=== PATIENT | male | born 1955 | race Caucasian/White ===

== ENCOUNTER 2019-08-16 08:40 | Outpatient (CLI) | payer MEDICARE, OTHER ==
--- NOTE | 2019-08-16 11:05 | CARDIAC PROCEDURE NOTE ---
DATE OF SERVICE: 08/16/2019 Physician: Connie Mcelroy MD, [facility] INDICATION: Dyspnea on exertion. CARDIAC RISK FACTORS: Male gender, diabetes, hypertension, hyperlipidemia, family history of heart disease. DESCRIPTION OF PROCEDURE: After signing informed consent, patient underwent a Gutierrez-protocol treadmill stress test. There was no imaging study ordered with this test. RESTING HEART RATE: 70. PEAK HEART RATE: 152 (98% predicted maximum heart rate for age). RESTING BLOOD PRESSURE: 144/84. PEAK BLOOD PRESSURE: 226/77. Patient exercised for 6 minutes and 40 seconds on a Gutierrez-protocol treadmill stress test. Patient developed moderate shortness of breath at peak. He had no chest pain. He described his perceived level of exertion on the Spencer scale at 15-16/20 at peak. Oxygen saturation remained 96-99% throughout the entire test on room air. RESTING EKG: Normal sinus rhythm, left IVCD, left atrial enlargement, otherwise within normal limits. EKG AT PEAK: [address] segment depressions in leads V3 through V6. SUMMARY 1. Borderline abnormal resting EKG. 2. Nonspecific EKG changes are noted at peak exercise, not specific for ischemia. 3. No imaging was ordered with this test. 4. Fair exercise tolerance. 5. Poor blood pressure control despite taking his morning Lisinopril. 6. This patient's cardiac risk based on all the above: Moderate-High. 7. Recommend recheck using imaging (nuclear or Echo) with stress. cc: Johan Ambriz MD TD: 08/16/2019 10:49 [facility]
== END 2019-08-16 08:41 | disposition home or self-care (01) ==
LOC: DI 08:40
PROVIDERS: ATTEND Family Medicine
DX: R06.09 Other forms of dyspnea (principal); R94.31 Abnormal electrocardiogram [ECG] [EKG]; E11.9 Type 2 diabetes mellitus without complications; I10 Essential (primary) hypertension; E78.5 Hyperlipidemia, unspecified; Z82.49 Family history of ischemic heart disease and other diseases of the circulatory system; F17.200 Nicotine dependence, unspecified, uncomplicated
CPT/HCPCS: 93017

== ENCOUNTER 2019-08-31 14:18 | Outpatient (CLI) | payer MEDICARE, OTHER ==
--- NOTE | 2019-08-31 16:11 | CARDIAC PROCEDURE NOTE ---
DATE OF SERVICE: 08/31/2019 Physician: Connie Mcelroy MD, [facility] INDICATION: Abnormal EKG, dyspnea. CARDIAC RISK FACTORS: Male gender, diabetes, hypertension, hyperlipidemia, family history of heart disease. PROCEDURE: After signing informed consent, the patient underwent a Gutierrez- protocol treadmill stress test with Echo imaging pre- and post-exercise. RESTING HEART RATE: 80. PEAK HEART RATE: 150 (97% predicted maximum heart rate for age). RESTING BLOOD PRESSURE: 134/68. PEAK BLOOD PRESSURE: 227/80. The patient exercised for 6 minutes and 30 seconds on a Gutierrez-protocol treadmill stress test. The patient achieved a peak heart rate of 150 (97% PMHR) and 10.2 METS. The patient developed shortness of breath at the end of stage 2 and described his perceived Spencer scale at 15/20 at peak. He had no chest pain. Oxygen saturation remained between 94 and 98% on room air throughout the entire test. The exercise was stopped because of fatigue and achieving target heart rate. There were also very frequent PACs during all of exercise. RESTING EKG: Normal sinus rhythm, left atrial enlargement, left IVCD. EKG AT PEAK: New T-wave flattening in leads III and aVF and upsloping ST segment depressions in leads V3 through V6. SUMMARY 1. Borderline abnormal resting EKG. 2. New inferior T-wave changes develop (compared to the last test), as well as nonspecific, upsloping anterolateral ST depressions occur with exercise. 3. Echo images reported separately. 4. Fair exercise tolerance. 5. Poor blood pressure control despite taking his morning Lisinopril. 6. Atrial ectopy seen frequently throughout this test. 7. This patient's cardiac risk based on all the above: Moderate-High. cc: Jennifer Palm MD TD: 08/31/2019 15:58 [facility]
== END 2019-08-31 14:19 | disposition home or self-care (01) ==
LOC: DI 14:18
PROVIDERS: ATTEND Family Medicine
DX: I25.9 Chronic ischemic heart disease, unspecified (principal); R94.31 Abnormal electrocardiogram [ECG] [EKG]; I10 Essential (primary) hypertension; E11.9 Type 2 diabetes mellitus without complications; E78.5 Hyperlipidemia, unspecified; Z82.49 Family history of ischemic heart disease and other diseases of the circulatory system
CPT/HCPCS: 93350